=== PATIENT | female | born 1965 | race Caucasian/White ===

== ENCOUNTER → 2022-03-07 | Outpatient (CLI) | payer OTHER ==
[~2022-03-07] MED LIST: ATOR20TA58 PO; ESCITALOPRAM OX10 MG PO; HYDR-2761 PO
== END ==
LOC: LAB 10:18
PROVIDERS: ATTEND Orthopaedic Surgery Sports Medicine
DX: Z01.812 Encounter for preprocedural laboratory examination (principal); Z20.822 Contact with and (suspected) exposure to COVID-19
CPT/HCPCS: U0003

== ENCOUNTER 2022-03-09 09:26 | Day surgery (SDC) | payer OTHER ==
[~2022-03-09] VITALS: Ht 185.4 cm; Wt 84.0 kg
[~2022-03-09 09:26] MED LIST changes: +DEXAMETHASONE SOD PHOS 4 MG/ML VIAL ONE; -HYDR-2761 PO; +LIDOCAINE 1% PF 2 ML VIAL. ONE; +MIDAZOLAM HCL/PF 2 MG/2 ML VIAL. ONE; +ROPIVacaine 0.5% PF 20 ML VIAL. ONE
[2022-03-09] MEDS ORDERED: IV RINGERS,LACTATED 1000ML 1,000 ML IV SCH ×2 (10:45→15:45)
[2022-03-09] MEDS ORDERED: HYDR-2761 PO (12:59)
--- NOTE | 2022-03-09 13:00 | DISCH ---
DISCHARGE INSTRUCTIONS Condition on Discharge Condition on Discharge: Stable Activity After Discharge Activity Instructions for Disc: Other ROM activity Other activity instructions: leave splint in place Bathing Instructions: Shower-keep dressing dry Weight Bearing Status after Di: Non weight bearing Diet after Discharge Diet after Discharge: Regular Wound Incision Care Wound/Incision Care: Ice to area for comfort, Keep wound/cast CDI, Keep wound elevated Contacting the DRBrooks after DC Call your doctor for: Concerns you may have Follow-Up Follow up with: Luisa in 2 wks NICK PEREZ II, MD Mar 09, 2022 13:00
--- NOTE | 2022-03-09 13:05 | PDOC4 ---
Operative Note Operative Note Date of procedure: 03/09/2022 Surgeon: Rob Perez Peanut Salter: Dav Barrera and Marium Tucker Preoperative diagnosis: Closed displaced left distal radius fracture, intra- articular Postoperative diagnosis: Same Procedure performed: Open reduction internal fixation intra-articular left distal radius fracture Anesthesia: General plus regional nerve block Findings: Acute fracture Complications: None Tourniquet time: 54 minutes Blood loss: 10 mL Components inserted: [employer] volar distal radius locking plate Reason for procedure: Patient is a pleasant and active 56-year-old female who was referred to see me in my outpatient clinic after a ground-level fall. Clinical and radiographic examination were consistent with the above preoperative diagnosis and after discussion of the risk benefits and alternatives she elected to proceed with surgery. Description of procedure: Patient was greeted in the preoperative area by myself or the correct extremity was verified and marked. She had placement of a regional nerve block by the anesthesiology team. She was taken to the operative suite and antibiotics were started as she was brought back. Once in the operating, she was transferred gently supine to the operating table and secured to the bed with all pressure points padded. The hand board was attached to the OR table and a nonsterile tourniquet was applied to her left upper extremity. We then proceeded prep and drape left upper extremity in her usual sterile fashion. A standard preoperative timeout was conducted. I palpated marked surface anatomy including her FCR tendon and radial artery. I romy a line for my planned skin incision, volar Naeem approach. Extremities exsanguinated with an Esmarch and tourniquet insufflated to 250 mmHg. After this, I incised skin with a scalpel and dissected subcutaneous tissue with tenotomy's. Bipolar cautery was used for hemostasis. I incised fascia in line with the skin incision on the radial aspect of the FCR tendon. I bluntly dissected down to the pronator quadratus and took this off with electrocautery. I used a perioste al elevator to expose the volar distal radius in anticipation of plate application. I had identified the fracture site and used a dental pick and small metal tip suction to debride the hematoma. After this I used a dental pick and a Morning Sun to perform a reduction maneuver. I provisionally pinned the radial styloid piece into place. After this I laid my plate against bone and adjusted. I then placed a K wire to secure the plate to the bone and help guide the trajectory of my screws. I then placed a nonlocking screw into the radial styloid piece followed by 3 locking screws into the distal row. I supplemented that this with a another locking screw in the radial styloid piece. After this I used a dental pick to pull traction and some ulnar deviation and then secured the plate to the shaft with 3 nonlocking screws. I then took my final images and was satisfied with fracture reduction and hardware position. After my final images, the operative field was thoroughly irrigated out with sterile saline. Tourniquet was let down and some venous oozing was cauterized. Pronator was reapproximated with [id number] 2-0 Vicryl. Inverted interrupted 2-0 Vicryl was used for subcutaneous tissue and 3-0 nylon in a mattress fashion was used to close skin. The arm and hand were cleansed and dried and a sterile soft dressing was applied followed by a sugar-tong splint. All counts correct x2 prior to wound closure. No complications. Postoperative plan is to discharge patient home. Postoperative instructions were given. She will be nonweightbearing left upper extremity. I will see her back in clinic in 2 weeks, sooner should a problem arise. ROB PEREZ II, MD Mar 09, 2022 13:05
[2022-03-09] MEDS ORDERED: BUPIVACAINE MPF 0.5% 30 ML VIAL. ONE (13:23)
[2022-03-09] MEDS ORDERED: LIDOCAINE 1% PF 30 ML VIAL. ONE (13:23)
[2022-03-09] MEDS ORDERED: DEXAMETHASONE SOD PHOS 4 MG/ML VIAL ONE (13:34)
[2022-03-09] MEDS ORDERED: ONDANSETRON PF 4 MG/2 ML VIAL. ONE (13:34)
[2022-03-09] MEDS ORDERED: LIDOCAINE 2% PF 5 ML VIAL. ONE (13:34)
[2022-03-09] MEDS ORDERED: PROPOFOL 10 MG/ML (20ML) VIAL. IV ONE (13:34)
[2022-03-09] MEDS ORDERED: fentaNYL PF VIAL 100 MCG/2 ML VIAL ONE ×2 (13:54→16:03)
[2022-03-09] MEDS ORDERED: SEVOFLURANE 61 TO 120 MINUTES. IH ONE (14:42)
[2022-03-09] MEDS ORDERED: HYDROmorphone 2 MG/ML INJ. IVP PRN (15:45)
[2022-03-09] MEDS ORDERED: PROCHLORPERAZINE 10 MG/2 ML VIAL. IVP PRN (15:45)
[2022-03-09] MEDS ORDERED: fentaNYL PF VIAL 100 MCG/2 ML VIAL IVP PRN (15:45)
[2022-03-09] MEDS ORDERED: HYDROcodone/APAP 5/325MG 1 TAB TABLET PO ONE (16:00)
[2022-03-09] MEDS ORDERED: MORPHINE SULFATE 2 MG/ML INJ. ONE (16:03)
[2022-03-09] MEDS: fentaNYL PF VIAL 100 MCG/2 ML VIAL IVP PRN ×2 (16:07→16:13)
[2022-03-09] MEDS: MORPHINE SULFATE 2 MG/ML INJ. IVP PRN ×2 (16:07→16:18)
[2022-03-09 17:00] VITALS: BP 143/90
== END 2022-03-09 17:30 | disposition home or self-care (01) ==
LOC: SURG 09:26
PROVIDERS: ATTEND Orthopaedic Surgery Sports Medicine
DX: S52.592A Other fractures of lower end of left radius, initial encounter for closed fracture (principal); E78.00 Pure hypercholesterolemia, unspecified; M19.90 Unspecified osteoarthritis, unspecified site; F41.9 Anxiety disorder, unspecified; F32.9 Major depressive disorder, single episode, unspecified; Z79.899 Other long term (current) drug therapy; Z98.890 Other specified postprocedural states; X58.XXXA Exposure to other specified factors, initial encounter; Y93.89 Activity, other specified; Y92.89 Other specified places as the place of occurrence of the external cause; Y99.8 Other external cause status
CPT/HCPCS: 76000; A4452; A4930; A6402; A6449; A6450; C1713; J0690; J1100; J2250; J2270; J2405; J2704; J2795; J3010; J3490